=== PATIENT | female | born 1960 | race Caucasian/White ===

== ENCOUNTER 2017-12-10 17:10 | Emergency (ER) | payer OTHER ==
[~2017-12-10] VITALS: Ht 160 cm; Wt 68.0 kg
[~2017-12-10 17:10] MED LIST: ACET325 PO; ALBU90OI INH; ALBU90OI6 INH; ALBU90OI61 INH; ALPR.25 PO; AZIT250 PO; BENZ100A PO; BUPR150T2; CEFP200 PO; CEPH500 PO; CIPR500 PO; CLAR500; CLON.1 PO; CLON.2 PO; CLON1; CLONIDINE PO; CONEST1.25 PO; CRESTOR; CYMBALTA PO; DIAZ5 PO; DIPH25; DULO60 PO; ESTR1; FLUSAL2505 INH; GEMF600; GEMF600 PO; GUAI600T33 PO; HYDACE5 PO; HYDACE7.5; HYDR1TAB94 PO; KETO10 PO; LAMICTAL PO; LAMO100; LAMO100 PO; LAMO25; LAVAP17G PO; LEVFLO500 PO; LORA1; LOVA20 PO; METPRE4DP PO; METR500 PO; Mucinex600 MG PO; NAPR500 PO; Naprosyn500 MG PO; Norco 5-325 Ta1 EACH PO; ONDA4 PO; OXYACE5T PO; OXYACE7.5T PO; OXYC10ER PO; PROACE100; PROG100; PROM25 PO; ROSU10TA; RXOXYACE PO; Robaxin-750750 MG PO; SACC250C PO; SERT100; SERT100 PO; SERT50; SULTRIDS PO; SYNTEST; TRAZ50; TRAZADONE; Ultram50 MG PO; [UNRECOGNIZED DRUG - REMARK]
[2017-12-10] MEDS ORDERED: CEPH500 PO (17:28)
== END 2017-12-10 17:32 | disposition home or self-care (01) ==
LOC: ER 17:10
DX: L03.211 Cellulitis of face (principal); Z88.8 Allergy status to other drugs, medicaments and biological substances; Z88.0 Allergy status to penicillin; J45.909 Unspecified asthma, uncomplicated; I10 Essential (primary) hypertension; F17.200 Nicotine dependence, unspecified, uncomplicated
CPT/HCPCS: 99281

== ENCOUNTER 2018-11-03 09:37 | Day surgery (SDC) | payer OTHER ==
[~2018-11-03] VITALS: Ht 160 cm; Wt 73.5 kg
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
--- NOTE | 2018-11-03 10:30 | NUR ---
PT APPEARS ANXIOUS. PT VERBALIZING HER FEARS REGARDING SURGERY. RN SUPPORTIVE-OFFERING CONTINUOUS ENCOURAGEMENT TO VERBALIZE FEARS AND ASK QUESTIONS NEEDED.
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
--- NOTE | 2018-11-03 19:10 | NUR ---
recvd report from previous shift yolanda Davila, pt sleepign in bed, call light within reach, bed in lowest position, bed rails up x 2
--- NOTE | 2018-11-04 05:25 | NUR ---
SHIFT SUMMARY: VSS, NO ACUTE CHANGES, REMAINED A/O X 4, PLEASANT, APPEARS TO BE ANXIOUS AT TIMES, ENCOURAGED DEEP BREATHING FOR RELAXATION. PT HAS A HX OF ANXIETY. PT WITH >400 ML OUTPUT OR URINE THIS SHIFT. ABDOMEN DRESSING REMAINED C/D/I, NO DRAINAGE. ABD MILDLY TENDER, SOFT, HYPOACTIVE BOWEL TONES.
[2018-11-04] MEDS ORDERED: Norco 5-325 Ta1 EACH PO (15:24)
--- NOTE | 2018-11-04 16:44 | NUR ---
DISCHARGE SUMMARY PT A&OX4, VSS, WALKED OFF FLOOR WITH FAMILY WITH ALL PERSONAL POSSESSIONS INCLUDING DISCHARGE PACKET AND 1 NARC SCRIPT. DISCHARGE INSTRUCTIONS PROVIDED. PT REP UNDERSTANDING THOSE INSTRUCTIONS INCLUDING FU WITH SURGEON IN 1 WK FOR PATHOLOGY, OK TO SHOWER, NO TUB/JACUZZI, SPLINTING W/COUGH & SNEEZE, ROLL TO GET UP. IV DC'D.
== END 2018-11-04 15:36 | disposition home or self-care (01) ==
LOC: ORSCMMR 09:37 → EDSTATUS 11:00 → PRE IP 11:00 → SURS 14:56 → ORSCMMR 11-04 15:36
PROVIDERS: Surgery
PROC: 07BB0ZX Excision of Mesenteric Lymphatic, Open Approach, Diagnostic (ICD-10-PCS; principal; 2018-11-03 12:45)
DX: R93.5 Abnormal findings on diagnostic imaging of other abdominal regions, including retroperitoneum (principal); D47.Z2 Castleman disease; F17.210 Nicotine dependence, cigarettes, uncomplicated; Z79.899 Other long term (current) drug therapy
CPT/HCPCS: 88305; 88342; A9270-GY; J1100; J1650; J1885; J1956; J2250; J2405; J2704; J3010; J7120

== ENCOUNTER 2019-07-04 08:47 | Day surgery (SDC) | payer OTHER ==
[~2019-07-04] VITALS: Ht 160 cm; Wt 72.2 kg
--- NOTE | 2019-07-04 09:57 | NUR ---
07/04/19 0957 Faith Saucedo 3 IV ATTEMPTS BY RXS FIRST AND SECOND ATTEMPT IN RIGHT HAND VEINS COLLAPSED, NO FLASHBACK THRID ATTEMPT IN RIGHT FOREARM SUCCESSFUL
== END 2019-07-04 10:38 | disposition home or self-care (01) ==
LOC: ORSCSDS 08:47
PROVIDERS: Surgery
PROC: 0DBN8ZX Excision of Sigmoid Colon, Via Natural or Artificial Opening Endoscopic, Diagnostic (ICD-10-PCS; principal; 2019-07-04 09:45)
PROC: 0DBH8ZX Excision of Cecum, Via Natural or Artificial Opening Endoscopic, Diagnostic (ICD-10-PCS; principal; 2019-07-04 09:45)
DX: Z12.72 Encounter for screening for malignant neoplasm of vagina (principal); D12.0 Benign neoplasm of cecum; D12.5 Benign neoplasm of sigmoid colon; Z86.010 Personal history of colon polyps; K64.8 Other hemorrhoids; E78.5 Hyperlipidemia, unspecified; I10 Essential (primary) hypertension; J45.909 Unspecified asthma, uncomplicated; F31.9 Bipolar disorder, unspecified; F41.8 Other specified anxiety disorders; F17.210 Nicotine dependence, cigarettes, uncomplicated
CPT/HCPCS: 88305; J2704; J7120

== ENCOUNTER 2020-04-25 18:01 | Emergency (ER) | payer OTHER ==
[~2020-04-25] VITALS: Ht 160 cm; Wt 72.6 kg
== END 2020-04-25 21:00 | disposition home or self-care (01) ==
LOC: ER 18:01
DX: S92.425A Nondisplaced fracture of distal phalanx of left great toe, initial encounter for closed fracture (principal); I10 Essential (primary) hypertension; Z88.1 Allergy status to other antibiotic agents; Z88.8 Allergy status to other drugs, medicaments and biological substances; Z88.0 Allergy status to penicillin; F17.200 Nicotine dependence, unspecified, uncomplicated; W20.8XXA Other cause of strike by thrown, projected or falling object, initial encounter
CPT/HCPCS: 29515; 73630; 99283-25; A9270

== ENCOUNTER 2022-06-20 12:36 | Emergency (ER) | payer OTHER ==
[~2022-06-20] VITALS: Ht 160 cm; Wt 74.8 kg
[~2022-06-20 12:36] MED LIST changes: +ACET500 PO; +IBUP400 PO; +ONDA4ODT MM
[2022-06-20 13:14] LABS: BASOPHILS ABSOLUTE AUTO 0.06 K/mm3 (0.00-0.23); BASOPHILS PERCENT AUTO 1 % (0-2); EOSINOPHILS ABSOLUTE AUTO 0.19 K/mm3 (0.00-0.68); EOSINOPHILS PERCENT AUTO 2 % (0-6); Hematocrit 37.9 % (33.0-51.0); Hemoglobin 12.7 g/dL (11.5-16.0); IMMATURE GRAN ABSOLUTE AUTO 0.08 K/mm3 (0.00-0.10); IMMATURE GRAN PERCENT AUTO 1 % (0-1); LYMPHOCYTES PERCENT AUTO 27 % (21-46); MONOCYTES ABSOLUTE AUTO 0.97 K/mm3 (0.16-1.47); MONOCYTES PERCENT AUTO 8 % (4-13); Mean Corpuscular HGB 28.4 pg (26.0-34.0); Mean Corpuscular HGB Conc 33.5 g/dL (31.5-36.5); Mean Corpuscular Volume 85 fL (80-100); Mean Platelet Volume 9.7 fL (9.1-12.4); NEUTROPHILS ABSOLUTE AUTO 8.09 K/mm3 (1.96-9.15); NEUTROPHILS PERCENT AUTO 63 % (41-73); Platelet Count 290 K/mm3 (150-400); RDW Coefficient Variation 14.7 % (11.7-14.2); RDW Standard Deviation 45.2 fL (35.1-46.3); Red Blood Cell Count 4.47 M/mm3 (3.80-5.20); White Blood Cell Count 12.79 K/mm3 (4.00-11.30)
[2022-06-20 13:36] LABS: Albumin, Blood 3.2 g/dL (3.4-5.0); Albumin/Globulin Ratio 0.8 (0.8-1.8); Bilirubin, Total 0.2 mg/dL (0.1-1.0); Bun/Creatinine Ratio 19.4 (12.0-20.0); Calcium, Blood 8.9 mg/dL (8.5-10.1); Creatinine, Blood 0.62 mg/dL (0.40-1.00); Globulin, Blood 4.1 g/dL (2.2-4.0); Potassium, Blood 4.1 mmol/L (3.5-5.5); Total Protein, Blood 7.3 g/dL (6.4-8.2)
[2022-06-20 16:18] LABS: Magnesium, Blood 2.3 mg/dL (1.6-2.4)
[2022-06-20 16:49] LABS: Influenza A, PCR NEGATIVE (NEGATIVE); Influenza B, PCR NEGATIVE (NEGATIVE); Resp Syncytial Virus, PCR NEGATIVE (NEGATIVE); SARS-Cov-2 (COVID-19) PCR, MMC NEGATIVE (NEGATIVE)
[2022-06-20] MEDS ORDERED: CYCL10 PO (17:58)
[2022-06-20] MEDS ORDERED: NAPR500 PO (17:58)
== END 2022-06-20 18:31 | disposition home or self-care (01) ==
LOC: ER 12:36
PROVIDERS: Emergency Medicine; Physician Assistant
DX: M79.10 Myalgia, unspecified site (principal); M54.2 Cervicalgia; F17.210 Nicotine dependence, cigarettes, uncomplicated; Z20.822 Contact with and (suspected) exposure to COVID-19
CPT/HCPCS: 0241U; 36415; 70450; 80053; 83605; 83690; 83735; 83880; 84484; 85025; A9270; J2270

== ENCOUNTER 2022-12-14 06:36 | Emergency (ER) | payer OTHER ==
[~2022-12-14] VITALS: Ht 160 cm; Wt 72.6 kg
[~2022-12-14 06:36] MED LIST changes: +CYCL10 PO
[2022-12-14] MEDS ORDERED: HIGH BP (06:54)
[2022-12-14 08:19] LABS: BASOPHILS ABSOLUTE AUTO 0.07 K/mm3 (0.00-0.23); BASOPHILS PERCENT AUTO 1 % (0-2); EOSINOPHILS ABSOLUTE AUTO 0.16 K/mm3 (0.00-0.68); EOSINOPHILS PERCENT AUTO 2 % (0-6); Hematocrit 35.4 % (33.0-51.0); Hemoglobin 11.7 g/dL (11.5-16.0); IMMATURE GRAN ABSOLUTE AUTO 0.03 K/mm3 (0.00-0.10); IMMATURE GRAN PERCENT AUTO 0 % (0-1); LYMPHOCYTES ABSOLUTE AUTO 2.52 K/mm3 (0.84-5.20); LYMPHOCYTES PERCENT AUTO 27 % (21-46); MONOCYTES ABSOLUTE AUTO 0.81 K/mm3 (0.16-1.47); MONOCYTES PERCENT AUTO 9 % (4-13); Mean Corpuscular HGB Conc 33.1 g/dL (31.5-36.5); Mean Corpuscular Volume 85 fL (80-100); Mean Platelet Volume 10.1 fL (9.1-12.4); NEUTROPHILS PERCENT AUTO 62 % (41-73); Platelet Count 273 K/mm3 (150-400); RDW Coefficient Variation 14.4 % (11.7-14.2); RDW Standard Deviation 44.4 fL (35.1-46.3); Red Blood Cell Count 4.18 M/mm3 (3.80-5.20); White Blood Cell Count 9.39 K/mm3 (4.00-11.30)
[2022-12-14 08:27] LABS: Albumin, Blood 3.3 g/dL (3.4-5.0); Albumin/Globulin Ratio 0.8 (0.8-1.8); Bilirubin, Total 0.5 mg/dL (0.1-1.0); Bun/Creatinine Ratio 21.3 (12.0-20.0); Calcium, Blood 8.7 mg/dL (8.5-10.1); Creatinine, Blood 0.61 mg/dL (0.40-1.00); Globulin, Blood 4.1 g/dL (2.2-4.0); Potassium, Blood 3.8 mmol/L (3.5-5.5); Total Protein, Blood 7.4 g/dL (6.4-8.2)
[2022-12-14 10:00] VITALS: BP 111/73
== END 2022-12-14 12:25 | disposition home or self-care (01) ==
LOC: ER 06:36
PROVIDERS: Family Medicine
DX: R51.9 Headache, unspecified (principal); R50.9 Fever, unspecified; R61 Generalized hyperhidrosis; R06.02 Shortness of breath; R07.89 Other chest pain; R10.11 Right upper quadrant pain; R11.0 Nausea; H91.91 Unspecified hearing loss, right ear; I10 Essential (primary) hypertension; J45.909 Unspecified asthma, uncomplicated; Z88.1 Allergy status to other antibiotic agents; Z88.8 Allergy status to other drugs, medicaments and biological substances; Z88.0 Allergy status to penicillin; Z79.899 Other long term (current) drug therapy; Z87.891 Personal history of nicotine dependence
CPT/HCPCS: 80053; 84484; 85025; 93005; 93010; 96374; 96375; 99284-25; J1200; J1885; J2765

== ENCOUNTER 2023-05-19 13:02 | Emergency (ER) | payer OTHER ==
[~2023-05-19] VITALS: Ht 160 cm; Wt 72.6 kg
[~2023-05-19 13:02] MED LIST changes: +HIGH BP; +LOVA40
[2023-05-19 13:07] VITALS: BP 131/86
[2023-05-19 13:36] LABS: BASOPHILS ABSOLUTE AUTO 0.04 K/mm3 (0.00-0.23); BASOPHILS PERCENT AUTO 1 % (0-2); EOSINOPHILS ABSOLUTE AUTO 0.02 K/mm3 (0.00-0.68); EOSINOPHILS PERCENT AUTO 0 % (0-6); Hematocrit 35.5 % (33.0-51.0); Hemoglobin 11.9 g/dL (11.5-16.0); IMMATURE GRAN ABSOLUTE AUTO 0.02 K/mm3 (0.00-0.10); IMMATURE GRAN PERCENT AUTO 0 % (0-1); LYMPHOCYTES ABSOLUTE AUTO 0.86 K/mm3 (0.84-5.20); LYMPHOCYTES PERCENT AUTO 16 % (21-46); MONOCYTES ABSOLUTE AUTO 0.96 K/mm3 (0.16-1.47); MONOCYTES PERCENT AUTO 18 % (4-13); Mean Corpuscular HGB 28.6 pg (26.0-34.0); Mean Corpuscular HGB Conc 33.5 g/dL (31.5-36.5); Mean Corpuscular Volume 85 fL (80-100); Mean Platelet Volume 9.4 fL (9.1-12.4); NEUTROPHILS ABSOLUTE AUTO 3.57 K/mm3 (1.96-9.15); NEUTROPHILS PERCENT AUTO 65 % (41-73); Platelet Count 212 K/mm3 (150-400); RDW Coefficient Variation 14.2 % (11.7-14.2); RDW Standard Deviation 43.9 fL (35.1-46.3); Red Blood Cell Count 4.16 M/mm3 (3.80-5.20); White Blood Cell Count 5.47 K/mm3 (4.00-11.30)
[2023-05-19 14:22] LABS: Albumin, Blood 3.3 g/dL (3.4-5.0); Albumin/Globulin Ratio 0.8 (0.8-1.8); Bilirubin, Total 0.5 mg/dL (0.1-1.0); Bun/Creatinine Ratio 15.9 (12.0-20.0); Calcium, Blood 8.8 mg/dL (8.5-10.1); Creatinine, Blood 0.75 mg/dL (0.40-1.00); Globulin, Blood 3.9 g/dL (2.2-4.0); Potassium, Blood 3.4 mmol/L (3.5-5.5); Total Protein, Blood 7.2 g/dL (6.4-8.2)
[2023-05-19 15:36] LABS: Source, Urine Clean Catch
[2023-05-19 15:40] LABS: Appearance, Urine Clear (Clear); Bilirubin, Urine Neg (Neg); Blood, Urine Neg (Neg); Color, Urine Yellow (P-Yellow); Glucose Qualitative, Urine Neg (Neg); Ketones, Urine Neg (Neg); Leukocyte Esterase, Urine Neg (Neg); Nitrite, Urine Neg (Neg); Protein, Urine 2+ (Neg); Urobilinogen, Urine NORM (Normal); pH, Urine 6.5 (5.0-8.0)
[2023-05-19 16:15] LABS: Bacteria Rare /hpf; Red Blood Cells, Urine 0-2 /hpf (0-2); Squamous Epithelial Cells Few /hpf (Few); White Blood Cells, Urine 0-2 /hpf (0-5)
[2023-05-19] MEDS ORDERED: ONDA4ODT MM (17:15)
== END 2023-05-19 17:59 | disposition home or self-care (01) ==
LOC: ER 13:02
PROVIDERS: Student in an Organized Health Care Education/Training Program
DX: K29.70 Gastritis, unspecified, without bleeding (principal); M54.6 Pain in thoracic spine; Z88.8 Allergy status to other drugs, medicaments and biological substances; Z88.1 Allergy status to other antibiotic agents; Z88.0 Allergy status to penicillin; Z79.899 Other long term (current) drug therapy; I10 Essential (primary) hypertension; J45.909 Unspecified asthma, uncomplicated; F17.200 Nicotine dependence, unspecified, uncomplicated
CPT/HCPCS: 74177; 80053; 81001; 83690; 85025; 93005; 93010; 96361; 96374; 96375; 99284-25; A9270; J1885; J2405; J7030; Q9967

== ENCOUNTER 2023-05-25 09:37 | Day surgery (SDC) | payer OTHER ==
[~2023-05-25] VITALS: Ht 160 cm; Wt 70.8 kg
[2023-05-25 11:50] VITALS: BP 129/84
== END 2023-05-25 12:07 | disposition home or self-care (01) ==
LOC: ORSCSDS 09:37
PROVIDERS: Student in an Organized Health Care Education/Training Program
PROC: 08RJ3JZ Replacement of Right Lens with Synthetic Substitute, Percutaneous Approach (ICD-10-PCS; principal; 2023-05-25 11:00)
DX: E11.36 Type 2 diabetes mellitus with diabetic cataract (principal); H25.13 Age-related nuclear cataract, bilateral; I10 Essential (primary) hypertension; E78.5 Hyperlipidemia, unspecified; F41.9 Anxiety disorder, unspecified; F32.A Depression, unspecified; F17.210 Nicotine dependence, cigarettes, uncomplicated; Z79.899 Other long term (current) drug therapy
CPT/HCPCS: 82947; J2250; J3010; J7040; V2632

== ENCOUNTER 2023-06-01 09:35 | Day surgery (SDC) | payer OTHER ==
[~2023-06-01] VITALS: Ht 160 cm; Wt 71.7 kg
[2023-06-01] MEDS ORDERED: LOSA25 PO (09:59)
--- NOTE | 2023-06-01 10:04 | NUR ---
06/01/23 1004 Hillary Hendricks AT 0959 PLEDGET AT 1000
[2023-06-01 11:08] VITALS: BP 135/89
--- NOTE | 2023-06-01 11:36 | NUR ---
06/01/23 1136 Aydin Leija IV REMOVED INTACT. SITE WNL.
== END 2023-06-01 11:55 | disposition home or self-care (01) ==
LOC: ORSCSDS 09:35
PROVIDERS: Student in an Organized Health Care Education/Training Program
PROC: 08RK3JZ Replacement of Left Lens with Synthetic Substitute, Percutaneous Approach (ICD-10-PCS; principal; 2023-06-01 11:00)
DX: E11.36 Type 2 diabetes mellitus with diabetic cataract (principal); H25.12 Age-related nuclear cataract, left eye; Z96.1 Presence of intraocular lens; I10 Essential (primary) hypertension; F41.9 Anxiety disorder, unspecified; F32.A Depression, unspecified; E78.5 Hyperlipidemia, unspecified; F17.210 Nicotine dependence, cigarettes, uncomplicated
CPT/HCPCS: 82947; A9270; J2250; J3010; J7040; V2632